=== PATIENT | female | born 1985 | race American Indian/Alaskan Native ===

== ENCOUNTER 2018-05-03 20:16 | Emergency (ER) | payer MEDICAID ==
[2018-05-03 21:16] VITALS: BP 145/88
[2018-05-04] MEDS ORDERED: IBUPROFEN PO ONE (00:25)
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
[2018-05-04] MEDS ORDERED: TYLENOL #3 PO ONE (02:39)
== END 2018-05-04 03:05 | disposition home or self-care (01) ==
LOC: ED 20:16
DX: S16.1XXA Strain of muscle, fascia and tendon at neck level, initial encounter (principal); S39.012A Strain of muscle, fascia and tendon of lower back, initial encounter; M79.601 Pain in right arm; M25.551 Pain in right hip; Z98.890 Other specified postprocedural states; V49.49XA Driver injured in collision with other motor vehicles in traffic accident, initial encounter; Y93.89 Activity, other specified; Y92.410 Unspecified street and highway as the place of occurrence of the external cause; Y99.8 Other external cause status
CPT/HCPCS: 72040; 72100